=== PATIENT | male | born 1980 | race Caucasian/White ===

== ENCOUNTER 2017-02-21 08:30 | Emergency (ER) | payer BC, MEDICAID ==
--- NOTE | 2017-02-21 08:47 | UCPHY ---
H & P Patient Type: Established Chief Complaint Nursing Narrative: vomiting 8-10 times since yesterday am, diarrhea starting early this am HPI/ROS: CHIEF COMPLAINT: Nausea, vomiting, and diarrhea HISTORY OF PRESENT ILLNESS: This patient is a 37 year old man, with a history of ulcers diagnosed by endoscopy, presenting with acute nausea and vomiting, onset yesterday morning. He is not able to tolerate PO or water without vomiting. It is associated with diarrhea, onset last night, and generalized abdominal discomfort. He tried smoking marijuana yesterday, which somewhat alleviated his symptoms for a short period of time, but then they recurred. Last episode of vomiting approximately 2-3 hours ago. Last episode of diarrhea at 3:30am. He does not take a proton pump inhibitor or antacids. He denies abdominal pain similar to previous ulcers. Denies recent alcohol use or binge. Denies hematemesis or black tarry stools. Denies fever or flank pain. REVIEW OF SYSTEMS: A ten point review of systems was performed and is negative with the exception of the items mentioned in the HPI. Source: Patient Exam Limitations: No limitations - Personal History Current Tetanus Diphtheria and Acellular Pertussis (TDAP): Yes Tetanus Vaccine Date: < 10 years - Medical/Surgical History Hx Asthma: No Hx Chronic Respiratory Disease: No Hx Diabetes: No Hx Cardiac Disease: No Hx Renal Disease: No Hx Cirrhosis: No Hx Alcoholism: No Hx HIV/AIDS: No Other PMH: gastric ulcer, vasectomy, appy, ortho surg,. 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 Recently moved to [place]. - Physical Exam Exam: General Appearance: Alert. Vital signs reviewed. BP 162/102 Eyes: Pupils equal and round, no conjunctival injection, no discharge. Anicteric. ENT, Mouth: Mucous membranes are dry, no oropharyngeal erythema or edema. Neck: No lymphadenopathy, supple. Respiratory: Lungs are clear to auscultation; no wheezes, rales, or rhonchi. Cardiovascular: Regular rate and rhythm; no murmur, rub, or gallop. Gastrointestinal: Abdomen is soft and nontender, no masses or organomegaly, bowel sounds normal. Skin: Warm and dry, no rashes on exposed skin, normal color. Back: Nontender to palpation over the thoracolumbar spine. No CVAT. Extremities: No lower extremity edema, no calf tenderness or swelling. Neurological: Alert and oriented. Moving all four extremities easily and equally. Psychiatric: Normal affect. Constitutional: Initial Vital Signs Temperature (C) 36.5 C 02/21/17 08:38 Heart Rate 83 02/21/17 08:38 Respiratory Rate 16 02/21/17 08:38 Blood Pressure 162/102 H 02/21/17 08:38 O2 Sat (%) 97 02/21/17 08:38 O2 Delivery Mode Room Air Allergies/Adverse Reactions: antibiotic unknown name Allergy (Uncoded 02/21/17 08:42) Home Medications: Medication Instructions Recorded Ondansetron Odt [Zofran Odt 4 mg 4 mg PO Q4 PRN #10 tab 02/21/17 (RX)] Medical Decision Making ED Course/Re-evaluation: This patient presents with two days of nausea, vomiting, and diarrhea. Abdomen is non-tender on exam. Mucous membranes are dry, consistent with mild dehydration. An IV has been established. He has received 4mg IV Zofran and 2L IV normal saline. I have requested a stool sample if he is able to provide one. CBC and basic metabolic panel ordered. 1100: Re-evaluation. He has received 2L IV normal saline. Abdomen remains non- tender. He has been able to tolerate small sips of luisana tammie. Patient is comfortable with discharge to home. I have prescribed Zofran for nausea. He may use Imodium for diarrhea. He does not want to take any acid blocking medications. Blood pressure at discharge was 161/99. He is aware that he has had high blood pressure today. He will have this rechecked with a primary care physician. He is being referred to a primary care physician in this area. With vomiting and diarrhea, I suspect that this is a gastroenteritis, self- limited. He did not have diarrhea or vomiting while at Urgent Care. Differential Diagnosis: I considered a differential diagnosis that includes but is not limited to peptic ulcer disease, gastritis, pancreatitis, and gastroenteritis. - Data Points Laboratory Results: Laboratory Results 02/21/17 08:58 02/21/17 08:58 Medications Given: Discontinued Medications Sodium Chloride (Ns) 1,000 mls @ 0 mls/hr IV ONCE ONE PRN Reason: Wide Open Stop: 02/21/17 08:49 Last Admin: 02/21/17 09:00 Dose: 1,000 mls Sodium Chloride (Ns) 1,000 mls @ 0 mls/hr IV ONCE ONE PRN Reason: Wide Open Stop: 02/21/17 09:52 Last Admin: 02/21/17 09:52 Dose: 1,000 mls Ondansetron HCl (Zofran) 4 mg IVP EDNOW ONE Stop: 02/21/17 08:49 Last Admin: 02/21/17 09:00 Dose: 4 mg Ondansetron HCl (Zofran) 4 mg IVP EDNOW ONE Stop: 02/21/17 09:46 Last Admin: 02/21/17 09:45 Dose: 4 mg Ondansetron HCl (Zofran) 4 mg IVP EDNOW ONE Stop: 02/21/17 09:46 Last Admin: 02/21/17 09:51 Dose: 4 mg Departure - Departure Disposition: Home, Routine, Self-Care Clinical Impression: Nausea vomiting and diarrhea, Gastroenteritis Condition: Good Instructions: Gastroenteritis (ED), Acute Nausea and Vomiting (ED), Acute Diarrhea (ED) Additional Instructions: Small sips of fluids and gradual diet advancement as tolerated. Take the Zofran , as prescribed, for nausea relief. Take Imodium, as directed over the counter, for diarrhea relief. Return [facility] or seek care from an emergency department if you experience intractable vomiting, abdominal pain, fever, or other concerns. Referrals: Sachin Denis MD [Medical Doctor] - As per Instructions (Local primary care provider director of medical education) Chinyere Valencia MD [Medical Doctor] - As per Instructions Prescriptions: Ondansetron Odt [Zofran Odt 4 mg (RX)] 4 mg PO Q4 PRN #10 tab PRN Reason: nausea - PQRS PQRS Measurement: Does not apply Report Scribed for: Monica Graham Report Scribed by: Chinyere Crane Date of Report: 02/21/17 Time of Report: 09:16 Physician Review and Approval Statement: 02/21/17 16:08 Portions of this note were transcribed by the anesthesiology medical doctor. I, Dr. Monica Graham, personally performed the history, physical exam, and medical decision- making; and confirmed the accuracy of the information in the transcribed note.
[2017-02-21] MEDS ORDERED: NS 1,000 ML IV ONE ×2 (08:48→09:51)
[2017-02-21] MEDS ORDERED: ONDANSETRON 4 MG/2 ML VIAL IVP ONE ×3 (08:48→09:45)
[2017-02-21 09:23] LABS: % IMMATURE GRANULYOCYTES 0.3 % (0.0-1.1); ABSOLUTE IMMATURE GRANULOCYTES 0.02 10^3/uL (0.00-0.10); ADD DIFF? NO; ADD MORPH? NO; ADD SCAN? NO; ATYPICAL LYMPHOCYTE FLAG 20 (0-99); FRAGMENT RBC FLAG 0 (0-99); HEMATOCRIT 50.1 % (40.0-51.0); HEMOGLOBIN 18.5 g/dL (13.7-17.5); LEFT SHIFT FLG 0 (0-99); LIPEMIA HEMOLYSIS FLAG 90 (0-99); MEAN CELL HEMOGLOBIN 34.2 pg (27.9-34.1); MEAN CELL HEMOGLOBIN CONCENTR. 36.9 g/dL (32.4-36.7); MEAN CELL VOLUME 92.6 fL (81.5-99.8); MEAN PLATELET VOLUME 9.5 fL (8.7-11.7); PLATELET CLUMPS FLAG 10 (0-99); PLATELET COUNT 249 10^3/uL (150-400); RED BLOOD CELL COUNT 5.41 10^6/uL (4.40-6.38); RED CELL DISTRIBUTION WIDTH 11.7 % (11.5-15.2)
[2017-02-21 09:34] LABS: ANION GAP 18 mEq/L (8-16); CALCIUM 9.9 mg/dL (8.5-10.4); CARBON DIOXIDE 21 mEq/l (22-31); CHLORIDE 100 mEq/L (97-110); CREATININE 0.8 mg/dL (0.7-1.3); GLOMERULAR FILTRATION RATE > 60; GLUCOSE 104 mg/dL (70-100); POTASSIUM 3.9 mEq/L (3.5-5.2); SODIUM 139 mEq/L (134-144)
[2017-02-21] MEDS ORDERED: ONDANSETRON 4 MG/2 ML VIAL ONE (09:43)
[2017-02-21 11:20] VITALS: BP 161/99; PULSE 75; RESP 18; TEMP 98.4; O2SAT 96
== END 2017-02-21 11:15 | disposition home or self-care (01) ==
LOC: CED 08:30
DX: K52.9 Noninfective gastroenteritis and colitis, unspecified (principal); F12.90 Cannabis use, unspecified, uncomplicated; Z87.891 Personal history of nicotine dependence
CPT/HCPCS: 80048-PO; 85025-PO; 96361-PO; 96365-PO; 96366-PO; 96374-PO; 96376-PO; 99214-PO; G0463-PO; J2405

== ENCOUNTER 2017-02-27 08:13 | Emergency (ER) | payer MEDICAID ==
[2017-02-27 08:33] VITALS: BP 143/95; PULSE 72; RESP 16; TEMP 98.4; O2SAT 96
--- NOTE | 2017-02-27 08:35 | UCPHY ---
H & P Patient Type: Established Time Seen by Provider: 02/27/17 08:31 HPI/ROS: Chief complaint: Left eye irritation HPI: 37-year-old male presenting with 4 days of irritation in his left eye. Patient woke up this morning noted that it was matted shut with some swelling of his lower eyelid. No vision changes. No pain. Has had some redness. Does not wear contact lenses. No known trauma. Is getting over a GI bug from last week. ROS: 10 point Review of Systems is negative except as noted in the HPI. Past medical history: None Medications: None Allergies: An antibiotic Social history, nonsmoker, occasional alcohol, occasional marijuana Physical exam: General: Awake, alert, no acute distress Eye Exam Visual Acuity: Normal OU EOM: Intact OU Visual Rodrigues: Intact OU Pupil: Equal, round and reactive to light and accomodation OU External: Mild lower lid edema without erythema Mild conjunctival injection on the left with limbic sparing Skin: No rash - Personal History Tetanus Vaccine Date: < 10 years - Medical/Surgical History Hx Asthma: No Hx Chronic Respiratory Disease: No Hx Diabetes: No Hx Cardiac Disease: No Hx Renal Disease: No Hx Cirrhosis: No Hx Alcoholism: No Hx HIV/AIDS: No Other PMH: gastric ulcer, vasectomy, appy, ortho surg,. hernia surg x2 - Family History Significant Family History: No pertinent family hx - Social History Smoking Status: Former smoker Allergies/Adverse Reactions: antibiotic unknown name Allergy (Uncoded 02/21/17 08:42) Home Medications: Medication Instructions Recorded Erythromycin 0.5% 3.5 gm OP Q4WA #1 opht.oint 02/27/17 Departure - Departure Disposition: Home, Routine, Self-Care Clinical Impression: Conjunctivitis Condition: Good Instructions: Conjunctivitis (ED) Additional Instructions: Follow up with primary care physician in 2-4 days if symptoms are not improving. Return Urgent Care go to the emergency department for worsening pain, vision changes, fevers, chills, or any other concerns. Referrals: UNKNOWN,UNKNOWN [Other] - As per Instructions Chinyere Valencia MD [Medical Doctor] - As per Instructions Prescriptions: Erythromycin 0.5% 3.5 gm OP Q4WA #1 opht.oint - PQRS PQRS Measurement: NA
== END 2017-02-27 08:51 | disposition home or self-care (01) ==
LOC: CED 08:13
DX: H10.9 Unspecified conjunctivitis (principal); Z87.891 Personal history of nicotine dependence
CPT/HCPCS: 99214-PO; G0463-PO

== ENCOUNTER → 2017-08-31 | Outpatient (CLI) | payer MEDICAID | LOC: CIMAGING 09:00 | PROVIDERS: ATTEND Family Medicine | DX: M50.322 Other cervical disc degeneration at C5-C6 level (principal) | CPT/HCPCS: 72040-PO ==

== ENCOUNTER → 2018-04-22 | Outpatient (CLI) | payer MEDICAID | LOC: CIMAGING 09:21 | PROVIDERS: ATTEND Family Medicine | DX: M19.071 Primary osteoarthritis, right ankle and foot (principal); M19.072 Primary osteoarthritis, left ankle and foot | CPT/HCPCS: 73620-PO ==